=== PATIENT | female | born 1960 | race African-American/Black ===

== ENCOUNTER 2021-08-10 19:10 | Emergency (ER) | payer OTHER, SELFPAY ==
--- NOTE | ~2021-08-10 | XR_ITS ---
EXAM: XR ankle LT min 3V HISTORY: trauma, FALL/ INJURY TODAY, DEFORMITY, PAIN MEDIAL/POSTERIOR COMPARISON: None available FINDINGS: Medial joint space widening. Posterior malleolar fracture. Oblique fracture of the distal left fibula extending to the joint line (high-grade, unstable Arvizu B type fracture). Posterolateral displacement of the talar dome relative to the tibial plafond. No other fracture or dislocation detec seth. IMPRESSION: Posterolateral left tibiotalar dislocation. Mildly displaced fractures of the left lateral and research project manager ior malleoli. Deltoid ligament injury is likely present. Reviewed, dictated and finalized at location K. IMPRESSION: Posterolateral left tibiotalar dislocation. Mildly displaced fractures of the l eft lateral and posterior malleoli. Deltoid ligament injury is likely present.
--- NOTE | ~2021-08-10 | XR_ITS ---
EXAM: XR ankle LT 2V HISTORY: reduction COMPARISON: XR ankle left, same date, performed at 7:28 PM FINDINGS/IMPRESSION: Successful interval left tibiotalar reduction, with improved alignment of the lateral and posterior m alleolar fractures and ankle joint. Reviewed, dictated and finalized at location K.
[2021-08-10 19:14] VITALS: BP 194/93; PULSE 115; RESP 20; TEMP 37.8; O2SAT 100
--- NOTE | 2021-08-10 20:04 | ED.LOWEXIN ---
HPI - Extremity Injury (Lower) General Chief Complaint: Extremity Injury, Lower Stated Complaint: possible L ankle fx Time Seen by Provider: 08/10/21 19:16 History of Present Illness HPI Narrative: Patient is a 60-year-old female who presents ER with left ankle pain. Patient was sitting on some bleachers when she went to stand up and got her foot caught and felt a pop. She fell. She did not strike her head or lose consciousness. No numbness or tingling in the lower extremity. Unable to bear weight. Deformity noted. No pain meds by EMS. Related Data Home Medications Medication Instructions Recorded Confirmed hydrochlorothiazide 25 mg PO DAILY 08/10/21 Allergies Allergy/AdvReac Type Severity Reaction Status Date / Time No Known Allergies Allergy Verified 08/10/21 19:41 Review of Systems Cardiovascular: Cardiovascular: Denies chest pain, Denies rapid heart rate and Denies radiating jaw, neck or arm pain Respiratory: Respiratory: Denies cough and Denies dyspnea Gastrointestinal: Gastrointestinal: Denies abdominal pain, Denies nausea and Denies vomiting Musculoskeletal: Musculoskeletal: Reports arthralgias, Reports joint swelling and Denies muscle cramps Neurologic: Denies syncope, Denies headache(s), Denies focal weakness and Denies numbness PMFSH Past Medical History Medical History (Updated 08/10/21 @ 21:08 by Loki Kumar MD) Hypertension Surgical History Surgical History (Updated 08/10/21 @ 20:05 by Loki Kumar MD) History of foot surgery right Social History Social History (Updated 08/10/21 @ 20:05 by Loki Kumar MD) Smoking status: Never smoker Exam Narrative: GENERAL: Well-appearing, well-nourished, and in no acute distress. HEAD: Normocephalic, atraumatic. CHEST: Clear to auscultation. No respiratory distress. HEART: Regular rate and rhythm. Normal peripheral pulses. EXTREMITIES: Left ankle with deformity and tenderness along the joint line and left malleolus. Neurovascular intact distal. No tenderness or deformity to the hip or knee ipsilaterally. SKIN: Warm, dry, no rash. NEURO: No focal deficits. Alert and oriented x3. PSYCH: Normal mood and affect. Course Course Emergency Course: Patient splinted and joint reduced. Discussed case with Dr. Mahmood. Would like patient follow-up Thursday for further evaluation and scheduling of surgery. Vital Signs Vital signs: Vital Signs Temperature 100.1 F H 08/10/21 19:14 Pulse Rate 115 H 08/10/21 19:14 Respiratory Rate 20 08/10/21 19:14 Blood Pressure 194/93 H 08/10/21 19:14 Pulse Oximetry 100 08/10/21 19:14 Temperature 100.1 F H 08/10/21 19:14 Pulse Rate 100 08/10/21 20:20 Respiratory Rate 15 08/10/21 20:20 Blood Pressure 171/80 H 08/10/21 20:20 Pulse Oximetry 98 08/10/21 20:20 Procedures Orthopedic Fracture Reduction Fracture #1: Fracture Reduction date: 08/10/21 Fracture Reduction time: 20:10 Time Out Performed: Yes Side: left Fracture Reduction Location: other (fibula with talar dislocation) Pre-Procedure Neuro Vascular Exam: normal Technique: direct manipulation Post Reduction X-rays Demonstrate: anatomical reduction Post-reduction neuro exam: intact Post-reduction vascular exam: intact Splint Applied: Yes (short leg posterior) Patient Tolerated Procedure: well MDM - Extremity Injury (Lower) Imaging Data Radiologist's impression: ITS Impressions Ankle X-Ray 08/10/21 19:38 IMPRESSION: Posterolateral left tibiotalar dislocation. Mildly displaced fractures of the left lateral and posterior malleoli. Deltoid ligament injury is likely present. Discharge Plan Discharge Clinical Impression: Ankle fracture, Closed dislocation of left talus Patient Disposition: Home, Self-Care Condition: Stable Instructions: Ankle Fracture (ED), Crutch Instructions (ED), Non Weight
[2021-08-10] MEDS: HYDROmorphone HCL INJ (*CRX) 1 MG/ML SYR IV PUSH (20:12)
[2021-08-10 20:20] VITALS: BP 171/80; PULSE 100; RESP 15; O2SAT 98
--- NOTE | 2021-08-10 20:28 | PC.NURSE ---
Patient medicated with Dilaudid. EDP José manipulated ankle. Splint applied. CMS intact pre and post splint application. Patient tolerated well. Reports improvement in pain with IV Dilaudid and splint.
[2021-08-10] MEDS: HYDROcodone/acetaminophen (*CRX) 5-325 MG TABLET 1 TAB PO (21:33)
[2021-08-10 21:34] VITALS: BP 175/71; PULSE 75; RESP 18; O2SAT 98
== END 2021-08-10 21:45 | disposition home or self-care (01) ==
PROVIDERS: Emergency Provider Emergency Medicine; PCP Family Medicine
DX: S82.842A Displaced bimalleolar fracture of left lower leg, initial encounter for closed fracture (principal); I10 Essential (primary) hypertension; W23.1XXA Caught, crushed, jammed, or pinched between stationary objects, initial encounter
CPT/HCPCS: 27810; 73600; 73610; 96374; 99285; A9270; J1170